=== PATIENT | male | born 1960 | race American Indian/Alaskan Native ===

== ENCOUNTER 2019-06-17 09:35 | Outpatient (CLI) | payer OTHER ==
--- NOTE | 2019-06-17 12:44 | XRay Report ---
LUMBAR SPINE 3 VIEWS INDICATION: BACK PAIN. COMPARISON: None. FINDINGS: Normal alignment. Moderately severe degenerative disc disease at L4-5 with narrowing of th e disc space and vacuum disc phenomenonthe anterior and posterior osteophytes. The rest of the disc s paces are normal. Moderately severe multilevel facet joint disease with facet joint hypertrophy and s clerosis from L2-3 through L5-S1. No acute osseous or soft tissue abnormality. IMPRESSION: 1. Moderately severe L4-5 degenerative disc disease. 2. Multilevel moderately severe facet joint arthropathy. Signer Name: Bryan Forrest MD Signed: 06/17/2019 12:40 PM Workstation Name: [id number]
== END 2019-06-17 09:36 | disposition home or self-care (01) ==
LOC: XRAY 09:35
PROVIDERS: ATTEND Internal Medicine
DX: M47.816 Spondylosis without myelopathy or radiculopathy, lumbar region (principal); M12.88 Other specific arthropathies, not elsewhere classified, other specified site
CPT/HCPCS: 72100